=== PATIENT | male | born 1985 | race Caucasian/White ===

== ENCOUNTER → 2019-12-18 | Outpatient (CLI) | payer OTHER ==
[~2019-12-18] MED LIST: ALPRazolam 1MG TAB ONE
== END | disposition home or self-care (01) ==
LOC: RAD 06:46 → EDSTATUS 07:15
PROVIDERS: ATTEND Neurological Surgery
DX: M54.12 Radiculopathy, cervical region (principal); M54.6 Pain in thoracic spine
CPT/HCPCS: 72141